=== PATIENT | female | born 1970 | race Caucasian/White ===

== ENCOUNTER → 2020-11-28 | Day surgery (SDC) | payer BC | LOC: MAMMO 07:10 | PROVIDERS: ATTEND Obstetrics & Gynecology | PROC: 0HBT3ZX Excision of Right Breast, Percutaneous Approach, Diagnostic (ICD-10-PCS; principal; 2020-11-28) | DX: N60.21 Fibroadenosis of right breast (principal); N60.81 Other benign mammary dysplasias of right breast; N62 Hypertrophy of breast; N60.01 Solitary cyst of right breast | CPT/HCPCS: 19081; 76098; 88305; 88341; 88342 ==

== ENCOUNTER 2022-02-28 07:58 | Outpatient (CLI) | payer BC | END 2022-02-28 07:59 | disposition home or self-care (01) | LOC: BICCT 07:58 | PROVIDERS: ATTEND Family Medicine | DX: R31.9 Hematuria, unspecified (principal); K44.9 Diaphragmatic hernia without obstruction or gangrene | CPT/HCPCS: 74178 ==